=== PATIENT | female | born 1960 | race Hispanic/Latino ===

== ENCOUNTER 2019-01-01 15:10 | Outpatient (CLI) | payer BC, OTHER | END 2019-01-01 15:11 | disposition home or self-care (01) | LOC: LABHHL 15:10 | PROVIDERS: ATTEND Surgery | DX: N60.12 Diffuse cystic mastopathy of left breast (principal); N62 Hypertrophy of breast | CPT/HCPCS: 88305; 88341; 88342 ==

== ENCOUNTER 2020-03-11 15:41 | Outpatient (CLI) | payer BC ==
--- NOTE | 2020-03-11 16:49 | Ultrasound Report ---
EXAMINATION: Right Limited Breast Ultrasound, 03/11/2020 INDICATION: Abnormal breast MRI. COMPARISON: Right breast ultrasound 01/01/20. FINDINGS: Targeted ultrasound evaluation was performed of the area of interest. Again noted is an 8. 2 mm ovoid complicated cyst at the 1:00 position 5 cm from the nipple which measured 9.7 mm previousl y. There is a 7.7 mm isoechoic to hypoechoic solid mass with angular margins at the 9:30 position 6 cm f rom the nipple. Mild posterior shadowing is present. No internal vascularity is seen on Doppler exam. Additionally there is a 1.5 cm hypoechoic solid nodule at the 9:30 position 2 cm from the nipple whic h has lobulated margins and demonstrates posterior shadowing. This corresponds to a stable nodule donna mographically (since 2015) which contains a biopsy clip. No other abnormality is seen. IMPRESSION: 1. 7.7 mm hypoechoic solid shadowing mass at the 9:30 position 6 cm from the nipple. Biopsy is recomm ended. 2. 1.5 cm hypoechoic solid nodule at the 9:30 position 2 cm from the nipple corresponds to a stable n odule mammographically with an associated biopsy clip. Correlation with prior pathology is recommende d. 3. Small complicated cyst at the 1:00 position is slightly smaller than on the prior ultrasound. Follow up recommendation: Surgical consult BI-RADS Category 4: Suspicious for Malignancy. Signer Name: Mathew Saavedra MD Signed: 03/11/2020 4:45 PM Workstation Name: [id number]
== END 2020-03-11 15:42 | disposition home or self-care (01) ==
LOC: SPVWC 15:41
PROVIDERS: ATTEND Surgery
DX: N60.01 Solitary cyst of right breast (principal); N63.41 Unspecified lump in right breast, subareolar

== ENCOUNTER 2020-03-19 14:10 | Outpatient (CLI) | payer BC ==
--- NOTE | 2020-03-19 15:54 | Ultrasound Report ---
EXAMINATION: Right Limited Breast Ultrasound, 03/19/2020 INDICATION: Possible ultrasound-guided biopsy, abnormal outside MR, possible finding on recent ultras ound COMPARISON: Outside MR breast 03/03/2020, right breast ultrasound 03/11/2020, right mammogram 12/19/2019 FINDINGS: Targeted ultrasound evaluation was performed of the area of interest. I was present for terrence l-time examination. The area of question at 9:30, 6 cm from the nipple, is much less impressive in re al-time study than on some static images of recent sonography. Small area of hypoechogenicity appears to represent fibrous cystic tissue and does not clearly shadow. No vascularity is seen. No discrete lesion is seen to correlate with the area of enhancement, nodularity, and distortion on the MR. The k nown benign biopsy nodule with clip which is only approximately 1.3 cm from the area in question on M R is visualized with no significant adjacent lesions area of the area just mentioned at 9:30 is well from the benign nodule. IMPRESSION: No significant lesion is seen sonographically and I do not see a good correlate for the M R abnormality. No good correlate was seen on mammography. MR guided biopsy is suggested. This was dis cussed with the patient. Follow up recommendation: See above BIRADS: 4: Suspicious Signer Name: Bob Lara MD Signed: 03/19/2020 3:50 PM Workstation Name: [id number]
== END 2020-03-19 14:11 | disposition home or self-care (01) ==
LOC: SPVWC 14:10
PROVIDERS: ATTEND Surgery
DX: N63.41 Unspecified lump in right breast, subareolar (principal); R92.8 Other abnormal and inconclusive findings on diagnostic imaging of breast

== ENCOUNTER 2020-03-25 10:33 | Outpatient (CLI) | payer BC ==
--- NOTE | 2020-03-25 14:35 | Mammography Report ---
DIGITAL DIAGNOSTIC MAMMOGRAM WITH CAD, 03/25/2020 INDICATION: Postbiopsy mammogram was obtained after MRI guided right breast biopsy to confirm clip p ositioning. TECHNIQUE: Digital right mammographic imaging was performed. This examination was interpreted with the benefit of Computer-aided Detection analysis. COMPARISON: MRI guided right breast biopsy, 03/25/2020. Bilateral breast MRI, 03/03/2020. Right breast u ltrasound, 03/19/2020 and 03/11/2020. FINDINGS: Breast Density: The breasts are heterogeneously dense, which may obscure small masses. Postbiopsy mammogram confirms satisfactory positioning of the biopsy clip at the approximate 9:00 pos ition middle depth. IMPRESSION: Follow up recommendation: No recall. Post biopsy imaging. Satisfactory postbiopsy appearance of the right breast. A "normal" or negative report should not discourage follow up or biopsy of a clinically significant f inding. A written summary of these findings will be mailed to the patient. The patient will be entered into a mammography reporting system which will generate a reminder letter for the patient's next appointmen t at the appropriate interval. According to the [employer], yearly mammograms are recommended starting at age 40 and continuing as long as a woman is in good health. Breast MRI is recommended for women with an morro roximately 20-25% or greater lifetime risk of breast cancer, including women with a strong family his tory of breast or ovarian cancer and women who have been treated for Hodgkin's disease. Signer Name: Constance Packer MD Signed: 03/25/2020 2:30 PM Workstation Name: [id number]
--- NOTE | 2020-03-25 14:37 | Magnetic Resonance Report ---
MRI guided right breast biopsy CLINICAL INFORMATION/INDICATION: Abnormal MRI and right breast mass. The patient has a history of abn ormal right mammogram. She recently underwent breast MRI, which demonstrated an enhancing mass in the right breast at the 9:00 position. No sonographic correlate was identified by recent ultrasound eval uation. Therefore, MRI guided biopsy was indicated. COMPARISON: Breast MRI, 03/03/2020. Right breast ultrasound, 03/11/2020 and 03/19/2020. PROCEDURE: Risks, benefits and indications to the procedure were discussed with the patient in detail, including bleeding, infection, hematoma formation and inadequate tissue sampling. The patient agreed to procee d with both verbal and written consent. A timeout procedure was performed with two patient identifier s. The patient was placed in the prone position in the MRI suite and localizer imaging was obtained usin g an 8 channel breast coil. Sagittal pre and post gadolinium fat-saturated sequences were obtained. The targeted area of interest was then identified and coordinates were determined. The breast was radha ansed and prepped in the usual sterile fashion. Lidocaine 1% with and without epinephrine was used fo r local anesthesia. A 9 gauge introducer sheath and stylette was then advanced to the appropriate pos ition from the lateral approach and replaced with an obturator. Subsequent sagittal sequences were ob tained to confirm satisfactory positioning of the sheath. Multiple vacuum assisted 9 gauge core sampl es were obtained in a round the clock fashion with a TapPress biopsy device. Post-biopsy images confirm satisfactory tissue sampling. A biopsy clip was then deployed at the biopsy site and sheath was remov ed. Hemostasis achieved with manual pressure. A sterile pressure dressing was applied to the skin. The patient tolerated the procedure without difficulty. No complications were encountered. Post-biops y instructions were discussed with the patient and given in writing. IMPRESSION: 1. Technically successful MRI guided right breast biopsy. Signer Name: Constance Packer MD Signed: 03/25/2020 2:33 PM Workstation Name: [id number]
== END 2020-03-25 10:34 | disposition home or self-care (01) ==
LOC: SPVIMAG 10:33
PROVIDERS: ATTEND Surgery
DX: N63.11 Unspecified lump in the right breast, upper outer quadrant (principal); R92.8 Other abnormal and inconclusive findings on diagnostic imaging of breast; D24.1 Benign neoplasm of right breast; N60.11 Diffuse cystic mastopathy of right breast; Z17.0 Estrogen receptor positive status [ER+]
CPT/HCPCS: 19085; 77065; 88305; A4648; A9577

== ENCOUNTER 2020-04-30 06:32 | Day surgery (SDC) | payer BC ==
[~2020-04-30 06:32] MED LIST: ACETAMINOPHEN 500 MG TAB PO SCH; GABAPENTIN 300 MG CAP PO NR; LACTATED RINGERS 1,000 ML IV SCH; MIDAZOLAM 2 MG/2 ML INJ IV NR; ceFAZolin/Water 2 GM/20 ML 2 GM/20 ML SYRINGE IV NR; fentaNYL 100 MCG/2 ML INJ IV PRN
[2020-04-30] MEDS ORDERED: HYDROmorphone 1 MG/1 ML INJ IV PRN (07:26)
--- NOTE | 2020-04-30 07:26 | Anesthesia Consultation ---
Anesthesia Consult and Med Hx Date of service: 04/30/20 - Airway Anesthetic Teeth Evaluation: Good ROM Head & Neck: Adequate Mental/Hyoid Distance: Adequate Mallampati Class: Class II Intubation Access Assessment: Probably Good - Pulmonary Exam CTA: Yes - Cardiac Exam Cardiac Exam: RRR - Pre-Operative Health Status ASA Pre-Surgery Classification: ASA3 Proposed Anesthetic Plan: General Nerve Block: PEC - Pulmonary Hx Smoking: No Hx Respiratory Symptoms: No Hx Sleep Apnea: Yes (compliant with CPAP) - Cardiovascular System Hx Hypertension: Yes Hx Heart Attack/AMI: No Hx Percutaneous Transluminal Coronary Angioplasty (PTCA): No Hx Cardia Arrhythmia: No - Central Nervous System CVA: No - Gastrointestinal Hx Gastroesophageal Reflux Disease: No - Endocrine Hx Renal Disease: No Hx Liver Disease: No Hx Insulin Dependent Diabetes: No Hx Non-Insulin Dependent Diabetes: No Hx Thyroid Disease: No - Hematic Hx Anemia: No (reviewed recent outpatient labs) - Other Systems Hx Cancer: Yes (breast ca) Hx Obesity: Yes (BMI 39) - Additional Comments Anesthesia Medical History Comments: No hx anesthetic complications. PCP evaluation on chart.
--- NOTE | 2020-04-30 07:26 | Anesthesia Day of Surgery ---
Anesthesia Day of Surgery - Day of Surgery Patient Examined: Yes Patient H&P Reviewed: Yes Patient is NPO: Yes
[2020-04-30] MEDS ORDERED: LIDOCAINE (1%) 10 MG/1 ML VIAL 20 ML MDV ONE (07:44)
[2020-04-30] MEDS ORDERED: BUPIVACAINE/PF (0.25%) 2.5 MG/ML 30 ML VIAL INFILTRATI ONE (08:12)
[2020-04-30] MEDS ORDERED: BUPIVACAINE-EPINEPHRINE/PF 0.5%-1:200,000 (10 ML) VIAL INFILTRATI ONE (08:44)
[2020-04-30] MEDS ORDERED: dexAMETHasone 4 MG/ML VIAL ONE (08:44)
--- NOTE | 2020-04-30 08:50 | Mammography Report ---
RIGHT BREAST NEEDLE LOCALIZATION USING X-RAY GUIDANCE The procedure was explained to the patient and informed consent obtained. PROCEDURE: Using 3 mL of 1% buffered lidocaine, a 25 gauge needle and x-ray guidance, the right edgard st lesion at approximately 9:00 was localized with standard needle/wire technique. There were no imme diate complications. INTERPRETATION: 2 images made during the procedure demonstrate the needle to be properly positioned. IMPRESSION: Successful right breast lesion localization as described above. Thank you for allowing us to participate in the care of your patient. Signer Name: Shiva Dunn Jr, MD Signed: 04/30/2020 8:45 AM Workstation Name: [id number]
[2020-04-30] MEDS ORDERED: LIDOCAINE MPF (2%) 20 MG/1 ML VIAL 5 ML ONE (10:50)
[2020-04-30] MEDS ORDERED: dexAMETHasone 20 MG/5 ML VIAL ONE (10:50)
[2020-04-30] MEDS ORDERED: ROCURONIUM 50 MG/5 ML INJ IV ONE (10:50)
[2020-04-30] MEDS ORDERED: ONDANSETRON 4 MG/2 ML INJ ONE (10:50)
[2020-04-30] MEDS ORDERED: HYDROmorphone 1 MG/1 ML INJ ONE ×2 (10:51→15:39)
[2020-04-30] MEDS ORDERED: propofoL 200 MG/20 ML VIAL IV ONE (10:51)
[2020-04-30] MEDS ORDERED: NEOSTIGMINE 10MG/10 ML INJ MDV ONE (11:12)
[2020-04-30] MEDS ORDERED: GLYCOPYRROLATE 0.4 MG/2 ML INJ ONE (11:12)
[2020-04-30] MEDS ORDERED: NEOMY 40 MG/POLYMYXIN B 200,000 UNITS/ML (GU) AMPULE IR ONE ×2 (12:58→15:40)
[2020-04-30] MEDS ORDERED: LACTATED RINGERS 1,000 ML ONE (14:10)
[2020-04-30] MEDS ORDERED: WATER FOR IRRIG STERILE 1,500 ML BOTTLE IR ONE (14:27)
[2020-04-30] MEDS ORDERED: SODIUM CHLORIDE 0.9% IRR 1,500 ML BOTTLE IR ONE (14:28)
[2020-04-30] MEDS ORDERED: BACITRACIN ZINC OINT 28.4 GM TP ONE ×2 (15:08→15:40)
--- NOTE | 2020-04-30 16:37 | Operative Report ---
Operative Report Operative Report: Operative Report: April 30, 2020 Preoperative diagnosis: Right breast cancer of the upper outer quadrant Postoperative diagnosis: Same Procedure: Right breast needle localization partial mastectomy of the upper outer quadrant with SLNB and placement of BioZorb marker Surgeon: Anali Doty MD Formal [employer] Rental Clerk: Greg Guillen MD Anesthesia: General Findings: Right wire and clip present within radiograph specimen; x 2 SLNs; placement of BioZorb marker Complications: None EBL: Less than 50 cc Disposition: PACU in good condition Indications for operative procedure: This is a 59 year old lady with newly diagnosed right breast cancer of the upper outer quadrant, Stage I [id number] ER/AZ positive (9:00 position). Recommendations are to proceed with breast conservation. Radiology to place wire at location of cancer. She understands the role of adjuvant radiation therapy and Oncotype DX will be obtained by medical oncology. She wished to proceed with the above procedure. Procedure in detail: The patient was taken to radiology for wire placement for localization known area of cancer. Anesthesia placed right pectoral block. Patient was then taken to the operating room. Gen. anesthesia was administered. The right nipple was injected with radioisotope. Right breast and axilla were prepped and draped in the normal sterile operative fashion. The wire was identified. Timeout was performed. Gamma probe was inserted into the axilla. The area of hot spot was identified. A right axillary incision was made with a 15 blade knife with dissection taken down to the subcutaneous tissues. The axillary fascia was opened with the Bovie cautery. 2 SLNs were identified and dissected free. All remaining counts were less than 10% of the highest count. Lymph node was sent to pathology for permanent processing. Hemostasis was obtained in the right axillary cavity. Axillary cavity was appropriately irrigated and suctioned. Hemostasis was noted. Axillary fascia was approximated and closed using interrupted 3-0 Vicryl and the skin brought together and closed using a running 4-0 Monocryl followed by skin affix. Attention was then taken towards the right breast. Lateral breast incision around 9:00 position was made with a 15 blade knife and dissection taken down to subcutaneous tissues. First began raising of the medial flap with removal of the wire from the skin with dissection taken medially past the area of known maglignancy and then taken down to the pectoralis muscle, followed by raising of the inferior flap, superior flap and lateral flap with all flaps taken past the area of known malignancy and then posteriorly down to the pectoralis muscle. The breast area of concern was appropriately removed posteriorly from the pectoralis muscle with the aid of the Bovie cautery. The wire was not encountered. Specimen was marked and then sent to pathology and radiology; radiograph specimen with wire and clip present. Breast cavity was irrigated and hemostasis was obtained. Then proceeded with placement of BioZorb marker lot [id number]. The posterior deep breast tissues were then mobilized to approximate and cover the area of the defect of at least 5 cm. The posterior deep breast tissues were approximated and closed using interrupted 3-0 Vicryl. The BioZorb of 2x2 centimeters was then sutured into place using interrupted 2-0 PDS, placing 4 sutures. Anterior breast tissue were then approximated and closed using interrupted 3-0 Vicryl. The BioZorb was not easily palpable. The subcutaneous tissues were then approximated and closed using interrupted 3-0 Vicryl followed by closing of the skin with a running 4-0 Monocryl and skin affix. The patient tolerated surgery very well and she was awaken from anesthesia without any complication and transported to PACU in good condition.
--- NOTE | 2020-04-30 16:42 | Short Stay Summary ---
Short Stay Documentation Date of service: 04/30/20 - History H&P: obtained from office - Allergies and Medications Current Medications: Allergies No Known Allergies Allergy (Unverified 04/24/20 08:35) Home Medications Medication Instructions Recorded Confirmed Last Taken Type Ergocalciferol [Vitamin D2] 1 cap PO QWEEK 04/24/20 04/24/20 Unknown History Potassium Chloride [K-Dur] 10 meq PO QDAY 04/24/20 04/24/20 Unknown History hydroCHLOROthiazide [HCTZ] 25 mg PO QDAY 04/24/20 04/24/20 Unknown History oxyCODONE /ACETAMINOPHEN [Percocet 1 tab PO Q6HR PRN #20 tablet 04/30/20 Unknown Rx 5/325] Active Medications Acetaminophen (Tylenol) 1,000 mg PO PREOP KEMAL Last Admin: 04/30/20 08:20 Dose: 1,000 mg Documented by: Fentanyl (Sublimaze) 100 mcg IV ONCE PRN PRN Reason: sedation for nerve block Last Admin: 04/30/20 10:06 Dose: 100 mcg Documented by: Gabapentin (Gabapentin) 300 mg PO PREOP NR Stop: 04/30/20 23:59 Last Admin: 04/30/20 08:20 Dose: 300 mg Documented by: Hydromorphone HCl (Dilaudid) 0.5 mg IV Q10MIN PRN PRN Reason: Pain , Severe (7-10) Stop: 04/30/20 23:00 Cefazolin Sodium (Ancef/Sterile Water 2 Gm/20 Ml) 2 gm in 20 mls @ 80 mls/hr IV PREOP NR; Protocol Stop: 04/30/20 23:00 Lactated Ringer's (Lactated Ringers) 1,000 mls @ 100 mls/hr IV DIRECT KEMAL Stop: 04/30/20 23:59 Last Admin: 04/30/20 08:20 Dose: 100 mls/hr Documented by: Midazolam HCl (Versed) 2 mg IV PREOP NR Stop: 04/30/20 23:59 Last Admin: 04/30/20 10:06 Dose: 2 mg Documented by: - Brief post op/procedure progress note Date of procedure: 04/30/20 Pre-op diagnosis: Right breast cancer upper outer quadrant Post-op diagnosis: same Procedure: Right needle localization partial mastectomy of UOQ with SLNB and BioZorb placement Anesthesia: GETA Findings: right partial mastectomy with clip and wire present; x2 slns Surgeon: AMY DAVIS Estimated blood loss: other (less than 50) Pathology: list (above) Specimen disposition: to lab Condition: stable - Disposition Condition at discharge: Good Disposition: DC-01 TO HOME OR SELFCARE Short Stay Discharge Plan Activity: other (no heavy lifting) Diet: regular Wound: keep clean and dry (wear breast binder; may shower in 48 hours; apply bactitracin to incision twice daily; no baths) Follow up with: AMY DAVIS MD [Staff Physician] - 7 Days Prescriptions: oxyCODONE /ACETAMINOPHEN [Percocet 5/325] 1 tab PO Q6HR PRN #20 tablet PRN Reason: Pain
--- NOTE | 2020-04-30 17:22 | Post Anesthesia Evaluation ---
- Post Anesthesia Evaluation Patient Participated: Yes Airway Patent: Yes Stable Respiratory Function: Yes Nausea/Vomiting: No Temp > 96.8F: Yes Pain Manageable: Yes Adequeate Hydration: Yes Anesthesia Complications: No Other Comments: Patient using incentive spirometry in PACU and encouraged to continue use at home.
[2020-04-30 20:56] VITALS: BP 152/82
--- NOTE | 2020-05-01 12:17 | Mammography Report ---
BREAST SPECIMEN RADIOGRAPH HISTORY: Right lumpectomy FINDINGS/IMPRESSION: The submitted radiograph or radiographs demonstrate(s) the presence of a biopsy marker and distal asp ect of a localization wire within soft tissue, as expected. Signer Name: Darcy Oliver MD Signed: 05/01/2020 12:12 PM Workstation Name: [id number]
== END 2020-04-30 06:33 | disposition home or self-care (01) ==
LOC: OR 06:32
PROVIDERS: ATTEND Surgery
DX: C50.411 Malignant neoplasm of upper-outer quadrant of right female breast (principal); Z20.828 Contact with and (suspected) exposure to other viral communicable diseases; I10 Essential (primary) hypertension; G47.30 Sleep apnea, unspecified; E66.9 Obesity, unspecified; Z17.0 Estrogen receptor positive status [ER+]; Z79.899 Other long term (current) drug therapy; Z68.39 Body mass index [BMI] 39.0-39.9, adult; Z98.890 Other specified postprocedural states
CPT/HCPCS: 19281; 19301; 38525; 38792; 76098; 78800; 88307; 88341; 88342; A4648; A9541; J0690; J1100; J1170; J2250; J2405; J2704; J2710; J3010; J7120; U0003; 64450; 88333

== ENCOUNTER 2021-04-02 10:44 | Outpatient (CLI) | payer BC ==
--- NOTE | 2021-04-02 12:21 | Mammography Report ---
DIGITAL DIAGNOSTIC MAMMOGRAM WITH CAD WITH TOMOSYNTHESIS, 04/02/2021 CLINICAL INFORMATION / INDICATION: Patient has a history of right breast cancer status post lumpectom y in 2020. PERSONAL HX OF BREAST CA Z85.3 TECHNIQUE: Digital bilateral mammographic imaging was performed. This examination was interpreted with the benefit of Computer-aided Detection analysis. COMPARISON: Prior mammograms 03/25/2020, 12/18/2019, and 12/15/2018 FINDINGS: Breast Density: There are scattered areas of fibroglandular density. No dominant mass, suspicious calcifications or architectural distortion in either breast. There is new benign postlumpectomy change seen in the posterior upper outer quadrant of the right beka ast. There are stable nodular densities seen in both breasts with associated biopsy clips. IMPRESSION: 1. New benign postlumpectomy change in the right breast. No suspicious mammographic abnormality ident ified. Follow up recommendation: Routine yearly BI-RADS Category 2: Benign. A "normal" or negative report should not discourage follow up or biopsy of a clinically significant f inding. A written summary of these findings will be mailed to the patient. The patient will be entered into a mammography reporting system which will generate a reminder letter for the patient's next appointmen t at the appropriate interval. According to the [employer], yearly mammograms are recommended starting at age 40 and continuing as long as a woman is in good health. Breast MRI is recommended for women with an morro roximately 20-25% or greater lifetime risk of breast cancer, including women with a strong family his tory of breast or ovarian cancer and women who have been treated for Hodgkin's disease. Signer Name: Jen Morgan MD Signed: 04/02/2021 12:09 PM Workstation Name: [id number]
== END 2021-04-02 10:45 | disposition home or self-care (01) ==
LOC: SPVWC 10:44
PROVIDERS: ATTEND Surgery
DX: R92.8 Other abnormal and inconclusive findings on diagnostic imaging of breast (principal); Z85.3 Personal history of malignant neoplasm of breast
CPT/HCPCS: 77066; G0279